=== PATIENT | female | born 1965 | race Caucasian/White ===

== ENCOUNTER 2017-11-19 07:58 | Day surgery (SDC) | payer BC ==
[~2017-11-19] VITALS: Ht 175.3 cm; Wt 63.0 kg
[~2017-11-19 07:58] MED LIST: CYCL10 PO; HYDACE5 PO; OXYACE5T PO; RXCYCL10 PO; RXHYDGUAS PO
[2017-11-19] MEDS ORDERED: COSENTYX P150 MG/11 (09:08)
[2017-11-19] MEDS ORDERED: COSENTYX P150 MG/11 SC (09:17)
== END 2017-11-19 12:00 | disposition home or self-care (01) ==
LOC: ORSCSDS 07:58
PROVIDERS: Orthopaedic Surgery
PROC: 0LN70ZZ Release Right Hand Tendon, Open Approach (ICD-10-PCS; principal; 2017-11-19 09:30)
PROC: 0LN80ZZ Release Left Hand Tendon, Open Approach (ICD-10-PCS; principal; 2017-11-19 09:30)
DX: M65.312 Trigger thumb, left thumb (principal); M65.311 Trigger thumb, right thumb; F17.210 Nicotine dependence, cigarettes, uncomplicated
CPT/HCPCS: J0171; J0690; J2250; J3010; J7120

== ENCOUNTER → 2017-12-13 | Outpatient (CLI) | payer BC ==
[~2017-12-13] MED LIST changes: +COSENTYX P150 MG/11; +COSENTYX P150 MG/11 SC
== END ==
LOC: LAB SHORT 18:32 → LAB 18:32
DX: L08.9 Local infection of the skin and subcutaneous tissue, unspecified (principal); L40.0 Psoriasis vulgaris; H01.131 Eczematous dermatitis of right upper eyelid; H01.134 Eczematous dermatitis of left upper eyelid
CPT/HCPCS: 87070; 87077; 87147; 87186; 87205

== ENCOUNTER 2019-08-22 09:32 | Day surgery (SDC) | payer BC ==
[~2019-08-22 09:32] MED LIST changes: +ALBU90OI INH; +Atrovent Inha12.9 GM INH; +BENZ100A PO; +DOXY100T53 PO; +FOLI1 PO; +Prednisone50 MG PO
[2019-08-22 11:29] LABS: Performing Lab PANL; Test Name FNA
== END 2019-08-22 23:01 | disposition home or self-care (01) ==
LOC: US 09:32
PROVIDERS: Nurse Practitioner Family
DX: E04.1 Nontoxic single thyroid nodule (principal)
CPT/HCPCS: 10005; 10006

== ENCOUNTER 2020-01-28 20:11 | Emergency (ER) | payer BC ==
[~2020-01-28] VITALS: Ht 175.3 cm; Wt 74.8 kg
[2020-01-29] MEDS ORDERED: LORCET 5-325 M1 EACH PO (00:15)
[2020-01-29] MEDS ORDERED: LIDO700A20 TOP (00:15)
== END 2020-01-29 00:35 | disposition home or self-care (01) ==
LOC: ER 20:11
DX: S22.32XA Fracture of one rib, left side, initial encounter for closed fracture (principal); Z88.2 Allergy status to sulfonamides; Z79.899 Other long term (current) drug therapy; M41.9 Scoliosis, unspecified; F17.200 Nicotine dependence, unspecified, uncomplicated; Z79.2 Long term (current) use of antibiotics; X58.XXXA Exposure to other specified factors, initial encounter
CPT/HCPCS: 71101; 71250; 99284-25; A9270-GY

== ENCOUNTER 2020-10-04 11:38 | Observation (INO) | payer BC ==
[~2020-10-04] VITALS: Ht 175.3 cm; Wt 79.4 kg
[~2020-10-04 11:38] MED LIST changes: +LIDO700A20 TOP; +LORCET 5-325 M1 EACH PO
[2020-10-04 12:30] LABS: BASOPHILS ABSOLUTE AUTO 0.09 K/mm3 (0.00-0.23); BASOPHILS PERCENT AUTO 1 % (0-2); EOSINOPHILS ABSOLUTE AUTO 1.76 K/mm3 (0.00-0.68); EOSINOPHILS PERCENT AUTO 18 % (0-6); Hematocrit 39.2 % (33.0-51.0); Hemoglobin 12.8 g/dL (11.5-16.0); IMMATURE GRAN ABSOLUTE AUTO 0.03 K/mm3 (0.00-0.10); IMMATURE GRAN PERCENT AUTO 0 % (0-1); LYMPHOCYTES ABSOLUTE AUTO 1.79 K/mm3 (0.84-5.20); LYMPHOCYTES PERCENT AUTO 19 % (21-46); MONOCYTES ABSOLUTE AUTO 0.61 K/mm3 (0.16-1.47); MONOCYTES PERCENT AUTO 6 % (4-13); Mean Corpuscular HGB 28.8 pg (26.0-34.0); Mean Corpuscular HGB Conc 32.7 g/dL (31.5-36.5); Mean Corpuscular Volume 88 fL (80-100); Mean Platelet Volume 11.5 fL (9.1-12.4); NEUTROPHILS ABSOLUTE AUTO 5.34 K/mm3 (1.96-9.15); NEUTROPHILS PERCENT AUTO 56 % (41-73); Platelet Count 307 K/mm3 (150-400); RDW Coefficient Variation 14.2 % (11.7-14.2); RDW Standard Deviation 45.4 fL (35.1-46.3); Red Blood Cell Count 4.44 M/mm3 (3.80-5.20); White Blood Cell Count 9.62 K/mm3 (4.00-11.30)
[2020-10-04 12:55] LABS: Alanine Aminotransfer (ALT/SGP 23 U/L (12-78); Albumin, Blood 3.6 g/dL (3.4-5.0); Albumin/Globulin Ratio 0.8 (0.8-1.8); Alk Phos 130 U/L (50-136); Anion Gap 7 mmol/L (6-16); Aspartate Aminotrans (AST/SGOT 18 U/L (12-37); Bilirubin, Total 0.4 mg/dL (0.1-1.0); Blood Urea Nitrogen 9 mg/dL (8-24); Bun/Creatinine Ratio 12.4 (12.0-20.0); CO2, Blood 27 mmol/L (21-32); Calcium, Blood 9.3 mg/dL (8.5-10.1); Chloride, Blood 107 mmol/L (98-108); Creatinine, Blood 0.73 mg/dL (0.40-1.00); Globulin, Blood 4.6 g/dL (2.2-4.0); Glomerular Filtration Rate >60 (60-); Glucose, Blood 90 mg/dL (70-99); Potassium, Blood 3.4 mmol/L (3.5-5.5); Sodium, Blood 141 mmol/L (136-145); Total Protein, Blood 8.2 g/dL (6.4-8.2); Troponin I <0.015 ng/mL (0.000-0.040)
[2020-10-04] MEDS ORDERED: SYMBICORT 160-4.6 GM INH (15:10)
[2020-10-04] MEDS ORDERED: GABA300 PO (15:11)
[2020-10-04] MEDS ORDERED: AMLODIPINE BESY10 MG PO (15:11)
[2020-10-04] MEDS ORDERED: IB GUARD (15:12)
[2020-10-04] MEDS ORDERED: METHIMAZOLE5 M2 PO ×2 (15:12→17:02)
[2020-10-04] MEDS ORDERED: ESOMEPRAZOLE MA20 MG PO (15:12)
[2020-10-04] MEDS ORDERED: PAXIL40 M1 PO (15:12)
[2020-10-04] MEDS ORDERED: PRED20 PO (15:13)
[2020-10-04] MEDS ORDERED: Doxycycline Mo100 M1 PO (15:14)
[2020-10-04] MEDS ORDERED: ALBU90OI INH (17:00)
[2020-10-04] MEDS ORDERED: GABA100 PO (17:00)
--- NOTE | 2020-10-04 18:33 | NUR ---
[facility] REPORT [facility] ED
[2020-10-05 05:19] LABS: BASOPHILS ABSOLUTE AUTO 0.01 K/mm3 (0.00-0.23); BASOPHILS PERCENT AUTO 0 % (0-2); EOSINOPHILS ABSOLUTE AUTO 0.02 K/mm3 (0.00-0.68); EOSINOPHILS PERCENT AUTO 0 % (0-6); Hematocrit 37.3 % (33.0-51.0); Hemoglobin 12.2 g/dL (11.5-16.0); IMMATURE GRAN ABSOLUTE AUTO 0.02 K/mm3 (0.00-0.10); IMMATURE GRAN PERCENT AUTO 0 % (0-1); LYMPHOCYTES ABSOLUTE AUTO 0.89 K/mm3 (0.84-5.20); LYMPHOCYTES PERCENT AUTO 11 % (21-46); MONOCYTES ABSOLUTE AUTO 0.07 K/mm3 (0.16-1.47); MONOCYTES PERCENT AUTO 1 % (4-13); Mean Corpuscular HGB 28.5 pg (26.0-34.0); Mean Corpuscular HGB Conc 32.7 g/dL (31.5-36.5); Mean Corpuscular Volume 87 fL (80-100); NEUTROPHILS PERCENT AUTO 88 % (41-73); Platelet Count 275 K/mm3 (150-400); RDW Standard Deviation 45.1 fL (35.1-46.3); Red Blood Cell Count 4.28 M/mm3 (3.80-5.20); White Blood Cell Count 8.51 K/mm3 (4.00-11.30)
[2020-10-05 05:48] LABS: Alanine Aminotransfer (ALT/SGP 22 U/L (12-78); Albumin, Blood 3.2 g/dL (3.4-5.0); Albumin/Globulin Ratio 0.7 (0.8-1.8); Alk Phos 120 U/L (50-136); Anion Gap 7 mmol/L (6-16); Aspartate Aminotrans (AST/SGOT 16 U/L (12-37); Bilirubin, Total 0.6 mg/dL (0.1-1.0); Blood Urea Nitrogen 13 mg/dL (8-24); Bun/Creatinine Ratio 20.6 (12.0-20.0); CO2, Blood 26 mmol/L (21-32); Calcium, Blood 9.4 mg/dL (8.5-10.1); Chloride, Blood 107 mmol/L (98-108); Creatinine, Blood 0.63 mg/dL (0.40-1.00); Globulin, Blood 4.4 g/dL (2.2-4.0); Glomerular Filtration Rate >60 (60-); Glucose, Blood 160 mg/dL (70-99); Potassium, Blood 3.6 mmol/L (3.5-5.5); Sodium, Blood 140 mmol/L (136-145); Total Protein, Blood 7.6 g/dL (6.4-8.2)
--- NOTE | 2020-10-05 13:06 | NUR ---
echocardiogram complete
--- NOTE | 2020-10-05 15:23 | NUR ---
PT TITRATED OFF OF O2, SHE IS SUSTAINNG ABOVE 90% ON RA. PT IS SATING ABOUT 91-93% ON RA CURRENTLY.
[2020-10-05] MEDS ORDERED: AZIT250 PO (17:25)
[2020-10-05] MEDS ORDERED: FURO20 PO (17:26)
[2020-10-05] MEDS ORDERED: ROBITUSSIN DM PO (17:26)
[2020-10-05] MEDS ORDERED: ONDA4ODT MM (17:27)
[2020-10-05] MEDS ORDERED: PRED20 PO (17:27)
[2020-10-05] MEDS ORDERED: Prinivil10 MG PO (17:27)
[2020-10-05] MEDS ORDERED: VISBIOME 112.51 EACH PO (17:28)
--- NOTE | 2020-10-05 18:13 | NUR ---
PT DISCHARGED @ APPROX 1815. PT WAS TAKEN DOWN TO PRIVATE VEHICLE VIA WHEELCHAIR BY ANNETTE, PRESENT DURING DISCHARGE. IV WAS REMOVED AND APPEARED WNL. PT WAS ABLE TO GET DRESSED WITHOUT ANY STAFF ASSISTANCE. SHE REPORTED NO DISTRESS OR DIFFICULTY DURING THIS TIME. DISCHARGE INSTRUCTIONS WERE REVIEWED WITH PT AND HER , NEITHER HAD QUESTIONS AT THIS TIME. NEEDED RX FAXED TO [facility]. ENCOURAGED PT TO COME BACK IF SHE EXPERIENCES ANY WORSENING SIGNS OR SX.
--- NOTE | 2020-10-07 02:58 | NUR ---
REVIEWED PT'S INFORMATION FOR CURRENT ADMISSION
== END 2020-10-05 18:23 | disposition home or self-care (01) ==
LOC: ER 11:38 → MEDS 11:39
PROVIDERS: Physician Assistant; ADMIT Internal Medicine
DX: J44.1 Chronic obstructive pulmonary disease with (acute) exacerbation (principal); I50.9 Heart failure, unspecified; K21.9 Gastro-esophageal reflux disease without esophagitis; K44.9 Diaphragmatic hernia without obstruction or gangrene; E05.90 Thyrotoxicosis, unspecified without thyrotoxic crisis or storm; Z87.891 Personal history of nicotine dependence; Z88.2 Allergy status to sulfonamides; Z20.822 Contact with and (suspected) exposure to COVID-19
CPT/HCPCS: 36415; 71045; 80053; 83880; 84439; 84443; 84484; 85025; 93005; 93010; 93306; 94640; 94644; 94760; 94761; 96365; 96372; 96375; 96376; 99285-25; A9270; G0378; J1650; J1940; J2930; J3475

== ENCOUNTER 2020-10-06 23:31 | Observation (INO) | payer BC ==
[~2020-10-06] VITALS: Ht 175.3 cm; Wt 80.3 kg
[~2020-10-06 23:31] MED LIST changes: +AMLODIPINE BESY10 MG PO; +AZIT250 PO; +Doxycycline Mo100 M1 PO; +ESOMEPRAZOLE MA20 MG PO; +FURO20 PO; +GABA100 PO; +GABA300 PO; +IB GUARD; +METHIMAZOLE5 M2 PO; +ONDA4ODT MM; +PAXIL40 M1 PO; +PRED20 PO; +Prinivil10 MG PO; +ROBITUSSIN DM PO; +SYMBICORT 160-4.6 GM INH; +VISBIOME 112.51 EACH PO
[2020-10-06 23:51] LABS: BASOPHILS ABSOLUTE AUTO 0.02 K/mm3 (0.00-0.23); BASOPHILS PERCENT AUTO 0 % (0-2); EOSINOPHILS PERCENT AUTO 0 % (0-6); Hematocrit 36.2 % (33.0-51.0); Hemoglobin 12.1 g/dL (11.5-16.0); IMMATURE GRAN ABSOLUTE AUTO 0.13 K/mm3 (0.00-0.10); IMMATURE GRAN PERCENT AUTO 1 % (0-1); LYMPHOCYTES ABSOLUTE AUTO 1.85 K/mm3 (0.84-5.20); LYMPHOCYTES PERCENT AUTO 11 % (21-46); MONOCYTES ABSOLUTE AUTO 0.98 K/mm3 (0.16-1.47); MONOCYTES PERCENT AUTO 6 % (4-13); Mean Corpuscular HGB 29.1 pg (26.0-34.0); Mean Corpuscular HGB Conc 33.4 g/dL (31.5-36.5); Mean Corpuscular Volume 87 fL (80-100); Mean Platelet Volume 11.8 fL (9.1-12.4); NEUTROPHILS ABSOLUTE AUTO 13.29 K/mm3 (1.96-9.15); NEUTROPHILS PERCENT AUTO 82 % (41-73); Platelet Count 335 K/mm3 (150-400); RDW Coefficient Variation 14.2 % (11.7-14.2); RDW Standard Deviation 45.4 fL (35.1-46.3); Red Blood Cell Count 4.16 M/mm3 (3.80-5.20); White Blood Cell Count 16.27 K/mm3 (4.00-11.30)
[2020-10-07 00:10] LABS: Alanine Aminotransfer (ALT/SGP 25 U/L (12-78); Albumin, Blood 3.3 g/dL (3.4-5.0); Albumin/Globulin Ratio 0.8 (0.8-1.8); Alk Phos 118 U/L (50-136); Anion Gap 5 mmol/L (6-16); Aspartate Aminotrans (AST/SGOT 18 U/L (12-37); Bilirubin, Total 0.3 mg/dL (0.1-1.0); Blood Urea Nitrogen 28 mg/dL (8-24); Bun/Creatinine Ratio 41.1 (12.0-20.0); CO2, Blood 26 mmol/L (21-32); Calcium, Blood 9.6 mg/dL (8.5-10.1); Chloride, Blood 106 mmol/L (98-108); Creatinine, Blood 0.68 mg/dL (0.40-1.00); Globulin, Blood 4.3 g/dL (2.2-4.0); Glomerular Filtration Rate >60 (60-); Glucose, Blood 117 mg/dL (70-99); Sodium, Blood 137 mmol/L (136-145); Total Protein, Blood 7.6 g/dL (6.4-8.2); Troponin I <0.015 ng/mL (0.000-0.040)
--- NOTE | 2020-10-07 05:31 | NUR ---
Joy is A&OX4, up independently in room to bathroom. Since arriving on floor, she has had no issues with chest pain or sob. She is voiding large quantities dilute urine. Lung sounds slightly more coarse on right with diminished sounds in all lower lobes. cough is dry and non productive. Ankle edema which was 1-2+ on Wednesday has resolved since.
--- NOTE | 2020-10-07 19:10 | NUR ---
SHIFT SUMMARY: NO ACUTE CHANGES TO REPORT THIS SHIFT. PT A&O; CALM & COOPERATIVE WITH CARE; INDEPENDENT IN ROOM. NO C/O PAIN THIS SHIFT. TELE IN PLACE; ST IN LOW 100s. MYOCARDIAL PERFUSION TEST THIS SHIFT; AWAITING RESULTS. REPORT GIVEN TO ONCOMING RN.
--- NOTE | 2020-10-08 03:41 | NUR ---
RUNNER WORKER SUMMARY A/O X4, PLEASANT AND COOPERATIVE WITH CARE. TELE IN PLACE RUNNING SR IN THE 90'S. DENIES CHEST PAIN/PRESSURE. LUNGS WHEEZY T/O, PRN ALBUTEROL GIVEN BY RT. NPO SINCE MIDNIGHT, PLAN IS FOR STRESS TEST TODAY. VSS, NO ACUTE CHANGES AT THIS TIME. BED IN LOWEST POSITION WITH CALL LIGHT IN REACH. WILL CONTINUE TO MONITOR AND REPORT TO ONCOMING RN.
[2020-10-08 04:30] LABS: Hematocrit 37.9 % (33.0-51.0); Hemoglobin 12.5 g/dL (11.5-16.0); Mean Corpuscular HGB 28.5 pg (26.0-34.0); Mean Corpuscular Volume 86 fL (80-100); Mean Platelet Volume 11.5 fL (9.1-12.4); Platelet Count 344 K/mm3 (150-400); RDW Coefficient Variation 13.7 % (11.7-14.2); RDW Standard Deviation 43.5 fL (35.1-46.3); Red Blood Cell Count 4.39 M/mm3 (3.80-5.20); White Blood Cell Count 12.35 K/mm3 (4.00-11.30)
[2020-10-08 04:52] LABS: Albumin, Blood 2.9 g/dL (3.4-5.0); Anion Gap 6 mmol/L (6-16); Blood Urea Nitrogen 29 mg/dL (8-24); Bun/Creatinine Ratio 41.5 (12.0-20.0); CO2, Blood 28 mmol/L (21-32); Calcium, Blood 8.6 mg/dL (8.5-10.1); Chloride, Blood 103 mmol/L (98-108); Glomerular Filtration Rate >60 (60-); Glucose, Blood 109 mg/dL (70-99); Magnesium, Blood 2.3 mg/dL (1.6-2.4); Phosphorus, Blood 3.6 mg/dL (2.5-4.9); Potassium, Blood 3.4 mmol/L (3.5-5.5); Sodium, Blood 137 mmol/L (136-145)
--- NOTE | 2020-10-08 12:53 | NUR ---
PATIENT DISCHARGE: PATIENT DISCHARGED TO HOME THIS SHIFT. MEDICATION RECONCILIATION COMPLETED; NO NEW MEDS TO REPORT. DISCHARGE EDUCATION COMPLETED WITH PATIENT. PATIENT TRANSPORTED TO EXIT BY [facility] STAFF WITH WHEELCHAIR AT 1234. PATIENT DEPARTED [facility] VIA PRIVATE AUTO.
== END 2020-10-08 12:34 | disposition home or self-care (01) ==
LOC: ER 23:31 → MEDS 23:32 → ER 10-07 02:38 → MEDS 10-07 02:43
PROVIDERS: Emergency Medicine; Family Medicine; ADMIT Family Medicine
DX: R07.9 Chest pain, unspecified (principal); J44.1 Chronic obstructive pulmonary disease with (acute) exacerbation; K21.9 Gastro-esophageal reflux disease without esophagitis; I11.0 Hypertensive heart disease with heart failure; I50.32 Chronic diastolic (congestive) heart failure; K44.9 Diaphragmatic hernia without obstruction or gangrene; J45.909 Unspecified asthma, uncomplicated; G89.29 Other chronic pain; E05.90 Thyrotoxicosis, unspecified without thyrotoxic crisis or storm; M54.9 Dorsalgia, unspecified; D72.829 Elevated white blood cell count, unspecified; Z87.891 Personal history of nicotine dependence
CPT/HCPCS: 36415; 71046; 78452; 80053; 80069; 83735; 83880; 84484; 85025; 85027; 93005; 93010; 93017; 94640; 94760; 96372; 96375; 99285-25; A9270; A9500; C9113; G0378; J0280; J0706; J1650; J2785; J7512

== ENCOUNTER 2021-02-12 08:30 | Day surgery (SDC) | payer BC ==
[~2021-02-12] VITALS: Ht 172.7 cm; Wt 76.4 kg
[~2021-02-12 08:30] MED LIST changes: +ATOR40TA PO; +CYCLOBENZAPRINE5 MG PO; +LOSA50 PO; +POTCHL20ER PO; +SERT50 PO; +TRELEGY ELLIPT1 EACH INH; +VITAMIN D325 MC3 PO
== END 2021-02-12 10:16 | disposition home or self-care (01) ==
LOC: ORSCSDS 08:30
PROVIDERS: Internal Medicine Gastroenterology
PROC: 0DBN8ZX Excision of Sigmoid Colon, Via Natural or Artificial Opening Endoscopic, Diagnostic (ICD-10-PCS; principal; 2021-02-12 09:45)
PROC: 0DB68ZX Excision of Stomach, Via Natural or Artificial Opening Endoscopic, Diagnostic (ICD-10-PCS; principal; 2021-02-12 09:45)
PROC: 0DB58ZX Excision of Esophagus, Via Natural or Artificial Opening Endoscopic, Diagnostic (ICD-10-PCS; principal; 2021-02-12 09:45)
DX: K22.70 Barrett's esophagus without dysplasia (principal); Z12.11 Encounter for screening for malignant neoplasm of colon; D12.5 Benign neoplasm of sigmoid colon; K64.8 Other hemorrhoids; K44.9 Diaphragmatic hernia without obstruction or gangrene; K21.9 Gastro-esophageal reflux disease without esophagitis; K20.90 Esophagitis, unspecified without bleeding; I10 Essential (primary) hypertension; E78.5 Hyperlipidemia, unspecified; K57.30 Diverticulosis of large intestine without perforation or abscess without bleeding; K29.70 Gastritis, unspecified, without bleeding; Z87.891 Personal history of nicotine dependence; Z79.899 Other long term (current) drug therapy
CPT/HCPCS: 88305; J2704; J7120

== ENCOUNTER → 2021-08-04 | Outpatient (CLI) | payer BC ==
[2021-08-06 13:46] LABS: Influenza A, PCR NEGATIVE (NEGATIVE); Influenza B, PCR NEGATIVE (NEGATIVE); Resp Syncytial Virus, PCR NEGATIVE (NEGATIVE); SARS-Cov-2 (COVID-19) PCR, MMC NEGATIVE (NEGATIVE)
== END ==
LOC: LAB SHORT 14:35
PROVIDERS: Nurse Practitioner Family
DX: Z01.812 Encounter for preprocedural laboratory examination (principal); Z20.822 Contact with and (suspected) exposure to COVID-19
CPT/HCPCS: 0241U

== ENCOUNTER 2021-08-24 15:50 | Emergency (ER) | payer SELFPAY ==
[~2021-08-24] VITALS: Ht 175.3 cm; Wt 72.6 kg
[2021-08-24] MEDS ORDERED: GABA100 (16:14)
[2021-08-24 16:38] LABS: BASOPHILS ABSOLUTE AUTO 0.04 K/mm3 (0.00-0.23); BASOPHILS PERCENT AUTO 0 % (0-2); EOSINOPHILS ABSOLUTE AUTO 0.01 K/mm3 (0.00-0.68); EOSINOPHILS PERCENT AUTO 0 % (0-6); Hematocrit 40.9 % (33.0-51.0); Hemoglobin 13.6 g/dL (11.5-16.0); Mean Corpuscular HGB 27.4 pg (26.0-34.0); Mean Corpuscular HGB Conc 33.3 g/dL (31.5-36.5); Mean Corpuscular Volume 82 fL (80-100); Mean Platelet Volume 11.9 fL (9.1-12.4); Platelet Count 286 K/mm3 (150-400); RDW Coefficient Variation 14.6 % (11.7-14.2); RDW Standard Deviation 44.1 fL (35.1-46.3); Red Blood Cell Count 4.97 M/mm3 (3.80-5.20); White Blood Cell Count 9.43 K/mm3 (4.00-11.30)
[2021-08-24 16:40] LABS: IMMATURE GRAN ABSOLUTE AUTO 0.04 K/mm3 (0.00-0.10); IMMATURE GRAN PERCENT AUTO 0 % (0-1); LYMPHOCYTES ABSOLUTE AUTO 1.97 K/mm3 (0.84-5.20); LYMPHOCYTES PERCENT AUTO 21 % (21-46); MONOCYTES ABSOLUTE AUTO 0.45 K/mm3 (0.16-1.47); MONOCYTES PERCENT AUTO 5 % (4-13); NEUTROPHILS ABSOLUTE AUTO 6.92 K/mm3 (1.96-9.15); NEUTROPHILS PERCENT AUTO 73 % (41-73)
[2021-08-24 17:01] LABS: Albumin, Blood 3.1 g/dL (3.4-5.0); Albumin/Globulin Ratio 0.6 (0.8-1.8); Bilirubin, Total 0.4 mg/dL (0.1-1.0); Bun/Creatinine Ratio 10.2 (12.0-20.0); Calcium, Blood 8.9 mg/dL (8.5-10.1); Creatinine, Blood 0.98 mg/dL (0.40-1.00); Globulin, Blood 4.8 g/dL (2.2-4.0); Potassium, Blood 2.9 mmol/L (3.5-5.5); Total Protein, Blood 7.9 g/dL (6.4-8.2)
[2021-08-24 18:05] LABS: Source, Urine Clean Catch
[2021-08-24 18:09] LABS: Blood, Urine 2+ (Neg); Glucose Qualitative, Urine Neg (Neg); Ketones, Urine Neg (Neg); Leukocyte Esterase, Urine 3+ (Neg); Nitrite, Urine Neg (Neg); Protein, Urine 3+ (Neg); Urobilinogen, Urine NORM (Normal); pH, Urine 6.5 (5.0-8.0)
[2021-08-24 18:23] LABS: Appearance, Urine Hazy (Clear); Bilirubin, Urine 1+ (Neg); Color, Urine Pale Yellow (P-Yellow)
[2021-08-24 18:24] LABS: Amorphous Mod (0-Heavy); Bacteria Many /hpf; Granular Casts 0-2 /lpf (0); Hyaline Casts 0-2 /lpf (0-2); Mucus Heavy (0-Heavy); Squamous Epithelial Cells Mod /hpf (Few)
== END 2021-08-24 20:06 | disposition home or self-care (01) ==
LOC: ER 15:50
PROVIDERS: Physician Assistant
DX: U07.1 COVID-19 (principal); E86.0 Dehydration; E87.6 Hypokalemia; G62.9 Polyneuropathy, unspecified; J44.9 Chronic obstructive pulmonary disease, unspecified; I11.0 Hypertensive heart disease with heart failure; I50.9 Heart failure, unspecified; K21.9 Gastro-esophageal reflux disease without esophagitis; Z88.2 Allergy status to sulfonamides; Z79.899 Other long term (current) drug therapy; Z87.891 Personal history of nicotine dependence
CPT/HCPCS: 36415; 80053; 81001; 83690; 83880; 84484; 85025; 93005; 93010; 96374; 96375; 99283-25; A9270; J1885; J2405; J7030

== ENCOUNTER → 2022-01-22 | Outpatient (CLI) | payer OTHER ==
[~2022-01-22] MED LIST changes: +GABA100
[2022-01-23 20:42] LABS: Adenovirus F 40/41 Not Detected (NOT DETECT); Astrovirus Not Detected (NOT DETECT); Campylobacter Sp Not Detected (NOT DETECT); Cryptosporidium Not Detected (NOT DETECT); Cyclospora Cayetanensis Not Detected (NOT DETECT); E. Coli O157 Not Detected (NOT DETECT); Entamoeba Histolytica Not Detected (NOT DETECT); Enteroaggregative E. coli-EAEC Not Detected (NOT DETECT); Enteropathogenic E. coli-EPEC Detected (NOT DETECT); Enterotoxigenic E. coli-ETEC Not Detected (NOT DETECT); Giardia Lamblia Not Detected (NOT DETECT); Norovirus GI/GII Not Detected (NOT DETECT); Plesiomonas Shigelloides Not Detected (NOT DETECT); Rotavirus A Not Detected (NOT DETECT); Salmonella Sp Not Detected (NOT DETECT); Sapovirus Not Detected (NOT DETECT); Shiga Toxin-prod E. coli-STEC Not Detected (NOT DETECT); Shigella/Enteroin E. coli-EIEC Not Detected (NOT DETECT); Vibrio Cholerae Not Detected (NOT DETECT); Vibrio Sp Not Detected (NOT DETECT); Yersinia Enterocolitica Not Detected (NOT DETECT)
== END ==
LOC: LAB 16:44 → LAB SHORT 16:44
PROVIDERS: Nurse Practitioner Family
DX: I11.0 Hypertensive heart disease with heart failure (principal); I50.9 Heart failure, unspecified; F41.8 Other specified anxiety disorders; E03.9 Hypothyroidism, unspecified; R19.7 Diarrhea, unspecified
CPT/HCPCS: 87507

== ENCOUNTER 2022-02-13 10:27 | Emergency (ER) | payer BC ==
[~2022-02-13] VITALS: Ht 175.3 cm; Wt 72.6 kg
== END 2022-02-13 12:35 | disposition home or self-care (01) ==
LOC: ER 10:27
DX: R07.81 Pleurodynia (principal); M25.512 Pain in left shoulder; J44.9 Chronic obstructive pulmonary disease, unspecified; I11.0 Hypertensive heart disease with heart failure; I50.9 Heart failure, unspecified; K21.9 Gastro-esophageal reflux disease without esophagitis; W01.190A Fall on same level from slipping, tripping and stumbling with subsequent striking against furniture, initial encounter; Z79.899 Other long term (current) drug therapy
CPT/HCPCS: 71101; 73030

== ENCOUNTER → 2022-02-16 | Outpatient (CLI) | payer BC | LOC: LAB 16:30 → LAB SHORT 16:30 | DX: N39.0 Urinary tract infection, site not specified (principal) | CPT/HCPCS: 87086 ==

== ENCOUNTER 2023-11-01 20:44 | Observation (INO) | payer BC ==
[~2023-11-01] VITALS: Ht 172.7 cm; Wt 72.6 kg
[2023-11-01] MEDS ORDERED: Ketorolac Tromethamine 15mg Vial IV ONE (21:05)
[2023-11-01 21:14] LABS: Hematocrit 41.6 % (33.0-51.0); Hemoglobin 13.8 g/dL (11.5-16.0); Mean Corpuscular HGB 28.7 pg (26.0-34.0); Mean Corpuscular HGB Conc 33.2 g/dL (31.5-36.5); Mean Corpuscular Volume 87 fL (80-100); Mean Platelet Volume 12.5 fL (9.1-12.4); Platelet Count 252 K/mm3 (150-400); RDW Coefficient Variation 13.5 % (11.7-14.2); RDW Standard Deviation 43.1 fL (35.1-46.3); Red Blood Cell Count 4.81 M/mm3 (3.80-5.20)
[2023-11-01 21:15] LABS: White Blood Cell Count 10.24 K/mm3 (4.00-11.30)
[2023-11-01 21:31] LABS: BASOPHILS PERCENT MAN 1 % (0-2); EOSINOPHILS PERCENT MAN 1 % (0-6); LYMPHOCYTES ABSOLUTE MAN 4.09 K/mm3 (0.84-5.20); LYMPHOCYTES PERCENT MAN 40 % (21-46); MONOCYTES ABSOLUTE MAN 0.71 K/mm3 (0.16-1.47); MONOCYTES PERCENT MAN 7 % (4-13); NEUTROPHILS ABSOLUTE MAN 5.22 K/mm3 (1.96-9.15); SEG NEUTROPHILS PERCENT MAN 51 % (41-73); TOTAL CELLS COUNTED 100
[2023-11-01 21:36] LABS: Albumin, Blood 3.8 g/dL (3.4-5.0); Albumin/Globulin Ratio 0.9 (0.8-1.8); Bilirubin, Total 0.5 mg/dL (0.1-1.0); Bun/Creatinine Ratio 13.7 (12.0-20.0); Calcium, Blood 9.6 mg/dL (8.5-10.1); Creatinine, Blood 0.73 mg/dL (0.40-1.00); Globulin, Blood 4.1 g/dL (2.2-4.0); Potassium, Blood 3.4 mmol/L (3.5-5.5); Total Protein, Blood 7.9 g/dL (6.4-8.2)
[2023-11-01] MEDS ORDERED: NS 1,000 ML IV SCH (22:40)
[2023-11-01] MEDS ORDERED: Morphine Sulfate 4 MG/1 ML Injection IV ONE (22:40)
[2023-11-02 00:06] LABS: Source, Urine Clean Catch
[2023-11-02 00:09] LABS: Appearance, Urine Hazy (Clear); Bilirubin, Urine Neg (Neg); Blood, Urine 4+ (Neg); Color, Urine Yellow (P-Yellow); Glucose Qualitative, Urine Neg (Neg); Ketones, Urine Neg (Neg); Leukocyte Esterase, Urine 3+ (Neg); Nitrite, Urine Neg (Neg); Protein, Urine 2+ (Neg); Specific Gravity, Urine 1.005 (1.003-1.022); Urobilinogen, Urine NORM (Normal)
[2023-11-02 00:18] LABS: Bacteria Few /hpf; Mucus Light (0-Heavy); Red Blood Cells, Urine 0-2 /hpf (0-2); Squamous Epithelial Cells Few /hpf (Few)
[2023-11-02] MEDS ORDERED: CefTRIAXone Sodium 1,000 MG in NS 100 ML IV ONE (00:25)
[2023-11-02] MEDS ORDERED: Morphine Sulfate 4 MG/1 ML Injection IV ONE (01:05)
[2023-11-02] MEDS ORDERED: Ondansetron HCl 2 MG / ML 2ML Vial IV PRN (01:25)
[2023-11-02] MEDS ORDERED: FentaNYL Citrate 50 MCG/ML 2 ML Injection IV PRN (01:30)
[2023-11-02] MEDS ORDERED: Potassium Chloride 40 MEQ in NS 250 ML IV ONE (01:35)
[2023-11-02] MEDS ORDERED: NS 1,000 ML IV ONE (01:40)
[2023-11-02 02:19] LABS: International Normalized Ratio 1.02; Prothrombin Time Results 10.9 Sec (9.7-11.5)
[2023-11-02 02:47] VITALS: BP 127/85
[2023-11-02] MEDS ORDERED: ATOR40TA PO (03:24)
[2023-11-02] MEDS ORDERED: ZOLOFT10013 PO (03:24)
[2023-11-02] MEDS ORDERED: potassium gluconate PO (03:29)
[2023-11-02 04:56] LABS: BASOPHILS ABSOLUTE AUTO 0.06 K/mm3 (0.00-0.23); BASOPHILS PERCENT AUTO 1 % (0-2); EOSINOPHILS ABSOLUTE AUTO 0.01 K/mm3 (0.00-0.68); EOSINOPHILS PERCENT AUTO 0 % (0-6); Hematocrit 34.5 % (33.0-51.0); Hemoglobin 11.5 g/dL (11.5-16.0); IMMATURE GRAN ABSOLUTE AUTO 0.02 K/mm3 (0.00-0.10); IMMATURE GRAN PERCENT AUTO 0 % (0-1); LYMPHOCYTES PERCENT AUTO 21 % (21-46); MONOCYTES ABSOLUTE AUTO 0.55 K/mm3 (0.16-1.47); MONOCYTES PERCENT AUTO 6 % (4-13); Mean Corpuscular HGB Conc 33.3 g/dL (31.5-36.5); Mean Corpuscular Volume 87 fL (80-100); Mean Platelet Volume 12.7 fL (9.1-12.4); NEUTROPHILS ABSOLUTE AUTO 6.29 K/mm3 (1.96-9.15); NEUTROPHILS PERCENT AUTO 72 % (41-73); Platelet Count 197 K/mm3 (150-400); RDW Coefficient Variation 13.6 % (11.7-14.2); RDW Standard Deviation 43.5 fL (35.1-46.3); Red Blood Cell Count 3.96 M/mm3 (3.80-5.20); White Blood Cell Count 8.73 K/mm3 (4.00-11.30)
[2023-11-02 05:18] VITALS: BP 107/80
[2023-11-02 06:12] LABS: Albumin, Blood 3.1 g/dL (3.4-5.0); Bilirubin, Total 0.3 mg/dL (0.1-1.0); Bun/Creatinine Ratio 11.3 (12.0-20.0); Calcium, Blood 8.7 mg/dL (8.5-10.1); Creatinine, Blood 0.62 mg/dL (0.40-1.00); Globulin, Blood 3.2 g/dL (2.2-4.0); Potassium, Blood 4.1 mmol/L (3.5-5.5); Total Protein, Blood 6.3 g/dL (6.4-8.2)
--- NOTE | 2023-11-02 06:40 | NUR ---
NEW ADMIT/JEWELRY CUTTER SUMMARY PT ADMIT FOR OBSTRUCTIVE KIDNEY STONE AND HYDRONEPHROSIS. PT A/OX4. FULL CODE. PT INDEPENDENT AND ABLE TO MAKE NEEDS KNOWN. PT WAS GIVEN PAIN MEDICATION IN THE ED. WHEN ARRIVED TO ROOM PT STATED PAIN WAS WELL CONTROLLED AT 2-3. PT ON TELE, NORMAL SINUS IN LIZETTE 70-80'S. SKIN IS CLEAN DRY AND INTACT. 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 PT LIVES AT HOME WITH OF OVER 20 YEARS. DENIES SAFETY CONCERNS. BY END OF SHIFT PT WAS DENIES PAIN OR NAUSEA. DR BAUTISTA AT BEDSIDE. CHANGED FROM NPO STATUS TO HEART HEALTHY DIES SO LONG PT REMAINS FREE OF N&V. PT ORIENTED TO ROOM AND CALL LIGHT.
[2023-11-02 07:06] VITALS: BP 120/77
[2023-11-02] MEDS ORDERED: NS 1,000 ML IV SCH (08:30)
[2023-11-02] MEDS ORDERED: Atorvastatin 40 MG Tab PO SCH (09:00)
[2023-11-02] MEDS ORDERED: AmLODIPine Besylate 5 MG Tab PO SCH (09:00)
[2023-11-02] MEDS ORDERED: Furosemide 20 MG Tab PO SCH (09:00)
[2023-11-02] MEDS ORDERED: Enoxaparin 40 MG/0.4 ML SYR SC SCH (09:00)
[2023-11-02] MEDS ORDERED: Tamsulosin HCl 0.4 MG Cap PO SCH (09:00)
[2023-11-02] MEDS ORDERED: Sertraline HCl 100 MG Tab PO SCH (09:00)
[2023-11-02] MEDS ORDERED: Potassium Chloride 20 MEQ TabCR PO SCH (09:00)
[2023-11-02] MEDS ORDERED: TAMS.4ER PO (14:21)
--- NOTE | 2023-11-02 14:51 | NUR ---
DISCHARGE PT DISCHARGED AFTER DC TEACHING WAS COMPLETED. PT EDUCATED ON NEW MEDICATION, WHICH WAS FAXED TO [facility]. PT ENCOURAGED TO UP HER PO INTAKE. PT & STATE THEY UNDERSTAND. NO ACUTE CHANGES IN ASSESSMENT PRIOR TO DC. WHEELED OUT BY AIDE & DRIVEN HOME BY
[2023-11-02] MEDS ORDERED: CefTRIAXone Sodium 1,000 MG in NS 100 ML IV SCH (15:00)
[2023-11-03] MEDS ORDERED: methIMAzole 5 MG TABLET PO SCH (09:00)
== END 2023-11-02 14:52 | disposition home or self-care (01) ==
LOC: ER 20:44 → MEDS 20:45
PROVIDERS: Emergency Medicine; Physician Assistant; ADMIT Internal Medicine
DX: N13.9 Obstructive and reflux uropathy, unspecified (principal); E03.9 Hypothyroidism, unspecified; K21.9 Gastro-esophageal reflux disease without esophagitis; I11.0 Hypertensive heart disease with heart failure; I50.32 Chronic diastolic (congestive) heart failure; J44.9 Chronic obstructive pulmonary disease, unspecified; G89.29 Other chronic pain; L40.0 Psoriasis vulgaris; M41.9 Scoliosis, unspecified; Z79.899 Other long term (current) drug therapy
CPT/HCPCS: 36415; 74177; 80053; 81001; 83690; 83880; 85025; 85610; 87086; 93005; 93010; 96361; 96365; 96367; 96372; 96375; 96376; 99285-25; A9270; G0378; J0696; J1650; J1885; J2270; J3480; J7030; J7050; Q9967

== ENCOUNTER 2025-03-21 11:49 | Emergency (ER) | payer OTHER ==
[~2025-03-21] VITALS: Ht 172.7 cm; Wt 72.6 kg
[~2025-03-21 11:49] MED LIST changes: +TAMS.4ER PO; +ZOLOFT10013 PO; +potassium gluconate PO
[2025-03-21 12:51] VITALS: BP 139/80
[2025-03-21] MEDS ORDERED: Lidocaine 4% 1 Patch TOP ONE (13:00)
[2025-03-21] MEDS ORDERED: Ketorolac Tromethamine 15mg Vial IM ONE (13:00)
[2025-03-21] MEDS ORDERED: FentaNYL Citrate 50 MCG/ML 2 ML Injection IM ONE (16:50)
[2025-03-21] MEDS ORDERED: LIDO700A20 TOP (17:04)
[2025-03-21] MEDS ORDERED: TIZA4 PO (17:04)
[2025-03-21] MEDS ORDERED: Voltaren100 GM TOP (17:04)
== END 2025-03-21 17:06 | disposition home or self-care (01) ==
LOC: ER 11:49
DX: M25.551 Pain in right hip (principal); M54.9 Dorsalgia, unspecified; Z88.2 Allergy status to sulfonamides; Z79.899 Other long term (current) drug therapy; J44.9 Chronic obstructive pulmonary disease, unspecified; I11.0 Hypertensive heart disease with heart failure; K21.9 Gastro-esophageal reflux disease without esophagitis; I50.9 Heart failure, unspecified
CPT/HCPCS: 73502; 96372; 99283-25; A9270; J1885